=== PATIENT | female | born 1950 | race Caucasian/White ===

== ENCOUNTER 2025-06-20 15:51 | Outpatient (AMB) | payer MEDICARE, MEDICAID, SELFPAY ==
--- NOTE | 2025-06-20 15:35 | A.OFFVIS_ITS ---
Intake Visit Reasons: 6m MCI Medication List - Last Reconciled 06/20/25 by Tejas Cid MD donepezil 10 mg PO DAILY 90 days HPI Comments Details: Doing well? with stable memory. Daughter helps with ADL. No change in her memory. Her son says that she has been stable. His sister first noted that she has some short-term memory problems for the last 1-1/2 years and will sometimes make up stories about events that are happening. There've been some subtle personality changes. She has not been cooking for about 7 years and did not feel safe with her using the stove. She has some urinary control issues and gets around with a cane. No falls. She is being treated for bronchial asthma insomnia depression and anxiety. No history of head trauma or stroke or family history of dementia. Review of Systems Const Details: ?Sleep:? Difficulty getting to sleepadmits.? Difficulty maintaining sleepadmits.? Urge to move legsdenies.? Teeth grindingdenies.? Shouting or Kicking during sleep denies.? Abnormal behavior during sleepdenies.? Excessive sleepdenies.? Snoring admits.? Daytime sleepinessdenies. ???General/Constitutional:? Change in appetitedenies.? Chillsdenies.? Fatiguedenies.? Feverdenies.? Weight gaindenies.? Weight lossdenies. ???Ophthalmologic:? Blurred visiondenies.? Diminished visual acuitydenies. ???ENT:? Stuffinessdenies.? Decreased hearingdenies.? Dry mouthdenies.? Ear paindenies.? Nosebleeddenies.? Ringing in the earsdenies.? Sinus paindenies.? Sore throat denies.? Swollen glandsdenies. ???Endocrine:? Cold intolerancedenies.? Excessive thirstdenies.? Frequent urinationdenies.? Heat intolerancedenies. ???Respiratory:? Shortness of breathadmits.? Chest paindenies.? Coughdenies. ???Breast:? Breast lumpdenies.? Nipple dischargedenies. ???Cardiovascular:? Chest pain at restdenies.? Chest pain with exertiondenies.? Claudicationdenies .? Dizzinessdenies.? Fluid accumulation in the legsdenies.? Irregular heartbeat denies.? Palpitationsdenies. ???Gastrointestinal:? Abdominal paindenies.? Constipationdenies.? Diarrheadenies.? Difficulty swallowingdenies.? Heartburnadmits.? Nauseadenies.? Rectal bleedingdenies. ???Hematology:? Easy bruisingdenies.? Prolonged bleedingdenies. ???Genitourinary:? Frequent urinationdenies.? Urgencydenies.? Incontinencedenies.? Erectile Dysfunctiondenies. ???Musculoskeletal:? Neck paindenies.? Back paindenies.? Muscle achesadmits.? Painful jointsadmits.? Sciaticadenies.? Weaknessdenies. ???Podiatric:? Difficulty walkingdenies.? Foot numbnessdenies. ???Neurologic:? Difficulty swallowingdenies.? Balance difficultydenies.? Coordinationnormal.? Difficulty speakingdenies.? Dizzinessdenies.? Faintingdenies.? Gait abnormality denies.? Headachedenies.? Loss of strengthdenies.? Loss of use of extremity denies.? Low back paindenies.? Memory lossadmits.? Seizuresdenies.? Ticsdenies.? Tingling/Numbnessdenies.? Transient loss of visiondenies.? Tremordenies. ???Psychiatric:? Anxietyadmits.? Auditory/visual hallucinationsPersonality change.? Delusions admits.? Depressed moodadmits.? Stressorsadmits.? Substance abusedenies.? Suicidal thoughtsdenies. Physical Exam Neuro Other: Neurological: Abnormal neurological findings:??none.?Mental Status:??alert and oriented X 3,?Normal attention, orientation, memory and affect.?Cranial Nerves:??Pupils are equal, round and reactive to light. Fundoscopy shows normal disc bilaterally. External occular muscles are intact. Visual gomez are full, no ptosis. Face is symmetrical, no facial weakness or droop. Facial sensations are normal. Tongue protrudes in midline. Palate elevates symmetrically. Shoulder shrugging is normal..?Motor Examination:??Normal muscle tone, bulk and strength,?No atrophy or fasciculations,?No drift of the extended upper extremities,?Deep tendon reflexes are 2+?,?Plantars are flexor?.?Straight Leg Raising:??90 degrees.?Sensory Exam:??Normal light touch, temperature, pinprick, vibration and joint-position sensations?,?Rhomberg sign is absent.?Coordination:??no ataxia,?no titubation,?fwrmci-pr-mulz, zdmk-udyu-lyum test and rapid alternating movements were normal.?Gait Exam:??Within normal limits.?Cerebellar Signs:??Wxoruv-up-egad and uqpt-ya-bfmu is normal,?no dysdiadochokinesia?.?Extrapyramidal System:??No tremor, rigidity with normal facial expressions,?No bradykinesia, no bradyphrenia. Normal arm swing and posture. No propulsion or retropulsion.?Speech:??Normal,?no dysphasia or dysarthria..? Mini Mental Status Exam: Level of Consciousness:??Alert.?Orientation:??Knows correct year, month, date, day and season,?Knows correct city, county and state. Knows correct location and floor.?Registration:??Able to register 3 objects.?Attention:??Serial 7's performed accurately.?Recall:??Able to recall 2 out of 3 objects.?Language:??Normal spontaneous speech, fluency, repetition,naming, comprehension, reading and writing.?Total Score:??29/30.? General Examination: GENERAL APPEARANCE:??normal,?in no acute distress.?HEAD:??normocephalic,?atraumatic.?EYES:??sclera non- icteric,?conjunctiva clear.?EARS:??auditory canal clear,?tympanic membrane intact, clear.?NOSE:??no lesions.?ORAL CAVITY:??gums normal,?mucosa moist,?no lesions.?THROAT:??clear.?NECK/THYROID:??no cervical lymphadenopathy,?thyroid normal,?neck supple, full range of motion,?no carotid bruit.?SKIN:??no rashes,?no significant birthmarks.?HEART:??S1, S2 normal,?no murmurs.?LUNGS:??clear anteriorly and posteriorly.?CHEST:??no gross rib deformity,?clear to auscultation.?BACK:??normal exam of spine.?EXTREMITIES:??no edema.?PERIPHERAL PULSES:??normal.?PSYCH:??alert, oriented,?cognitive function intact,?cooperative with exam.? Assessment & Plan Assessment & Plan (1) MCI (mild cognitive impairment): Comment: 04/16/22 EEG- WNL CT brain normal. Labs normal. Code(s): G31.84 - Mild cognitive impairment of uncertain or unknown etiology Category: Medical (2) Insomnia: Code(s): G47.00 - Insomnia, unspecified Category: Medical (3) YORDY (obstructive sleep apnea): Code(s): G47.33 - Obstructive sleep apnea (adult) (pediatric) Category: Medical Plan continue current meds Medications: New donepezil 10 mg PO DAILY 90 tabs 3RF 90 days Coding Level of Care Code Est Pt Level 4 (22070) Diagnoses MCI (mild cognitive impairment) G31.84 Insomnia G47.00 YORDY (obstructive sleep apnea) G47.33
--- OUTSIDE RECORDS SUMMARY | 2025-06-20 19:08 | XMS_ITS | Patient Health Record ---
Author Organization [facility] Address [address] [place] [address] Care Team Providers Care Ship Pilot Name Role Phone TORIBIO VARELA Primary Care Provider Orlin Barnes Unavailable [phone] JuanashleyKhanh fish Unavailable [phone] Allergies Allergen (clinical drug ingredient) Drug/Non Drug Allergy documented on EMR Reaction Allergy Type Onset Date Status eggs (uncoded) Unknown Allergy Activ e ibuprofen Ibuprofen Unknown Drug Allergy Active Influenza Vac Split Quad Unknown Drug Allergy Active Results Component Value Reference Range Notes TSH+Free [id number] Reviewed date:04/24/2025 02:37:10 PM Interpretation: Performing Lab:[facility], [address] [facility], Phone - [phone], Director - Charles Notes/Report: TSH 16.300 0.450-4.500 uIU/mL T4,Free(Direct) 1.10 0.82-1.77 ng/dL TSH+Free [id number] Reviewed date:06/04/2025 12:20:59 PM Interpretation: Performing Lab:[facility], [employer] [facility], Phone - [phone], Director - Mayay Notes/Report: TSH 12.700 0.450-4.500 uIU/mL T4,Free(Direct) 1.55 0.82-1.77 ng/dL 25-Hydroxyvitamin D LCMS D2+ [id number] Reviewed date:11/15/2024 04:16:30 PM Interpretation: Performing Lab:[facility], [address] [facility], Phone - [phone], Director - [facility] Notes/Report: 25-Hydroxy, Vitamin D 51 Reference Range: All Ages: Target levels 30 - 100 25-Hydroxy, Vitamin D-2 3.8 This test was developed and its performance characteristics determined by [facility]. It has not been cleared or approved by the Food and Drug Administration. 25-Hydroxy, Vitamin D-3 47 This test was developed and its performance characteristics determined by [facility]. It has not been cleared or approved by the Food and Drug Administration. Lipid Panel-[id number] Reviewed date:11/15/2024 04:16:32 PM Interpretation: Performing Lab:[facility] [place], [address] [facility], [place], Phone - [phone], Director - [facility] Notes/Report: Cholesterol, Total 174 100-199 mg/dL Triglycerides 110 0-149 mg/dL HDL Cholesterol 61 >39 mg/dL VLDL Cholesterol Norberto 20 5-40 mg/dL LDL Chol Calc ([facility]) 93 0-99 mg/dL Comp. Metabolic Panel (14)-3 Reviewed date:11/15/2024 04:17:04 PM Interpretation: Performing Lab:[facility], [address] [facility], [place], Phone - [phone], [facility]Report: Glucose 78 70-99 mg/dL BUN 12 8-27 mg/dL Creatinine 0.62 0.57-1.00 mg/dL eGFR 94 >59 mL/min/1.73 BUN/Creatinine Ratio 19 12-28 Sodium 144 134-144 mmol/L Potassium 4.7 3.5-5.2 mmol/L Chloride 106 96-106 mmol/L Carbon Dioxide, Total 25 20-29 mmol/L Calcium 9.0 8.7-10.3 mg/dL Protein, Total 6.0 6.0-8.5 g/dL Albumin 4.1 3.8-4.8 g/dL Globulin, Total 1.9 1.5-4.5 g/dL Bilirubin, Total 0.2 0.0-1.2 mg/dL Alkaline Phosphatase 62 44-121 IU/L AST (SGOT) 13 0-40 IU/L ALT (SGPT) 10 0-32 IU/L TSH+Free [id number] Reviewed date:11/15/2024 04:46:46 PM Interpretation: Performing Lab:[facility], [address], [place], Phone - [phone], Director - Charles Notes/Report: TSH 0.179 0.450-4.500 uIU/mL T4,Free(Direct) 1.52 0.82-1.77 ng/dL Reason For Referral Reason blurry vision Plea se evaluate and treat Diagnosis 1 Unspecified visual d isturbance (H53.9) Referral Organization [facility] Referring Provider First Name ROONEY Referring Provider Last Name NICHOLE Referring Provider Speciality Internal M edicine Referred Provider Specialty Ophthalmolog y General Notes Please call the julianne ent to schedule the appointment, Encounter created and SMS sent to the pt.Eran Charmain 04/11/2025 04:44:04 PM > Referral Priority Routine Medications Medication SIG (Take, Route, Frequency, Duration) Notes Start Date End Date Status Levothyroxine Sodium 100 MCG TAKE 1 TABLET IN THE MORNING ON AN EMPTY STOMACH ONCE A DAY Orally Once a day; Duration: 30 days Not-Taking Cetirizine HCl 10 MG 1 tablet Orally Onc e a day; Duration: 90 days Active Advair HFA 230-21 MCG/ACT 2 puffs Inhala tion Twice a day; Duration: 90 days Active Ketotifen Fumarate 0.035 % 1 drop into affected eye Ophthalmic Twice a day Not-Taking Omeprazole 20 MG 1 capsule Orally twi ce a day; Duration: 30 days 11/28/2024 Active Ammonium Lactate 12 % 1 application Externally Twice a day Active Ondansetron HCl 4 MG 1 tablet Orally twi ce a day; Duration: 5 days 11/28/2024 Not-Taking Vitamin D3 1.25 MG (33365 UT) 1 capsule Orally Active Airsupra 90-80 MCG/ACT 2 puffs as needed Inhalation Six times a day Active Misc. Devices - Walker as directed; DX: R26.89; Duration: 30 days 10/30/2024 Not-Taking Spiriva Respimat 1.25 MCG/ACT 2 puffs Inhalation Once a day Active Omeprazole 20 MG TAKE 1 CAPSULE BY MO [facility] EVERY DAY FOR 90 DAYS; Duration: 90 Not-Taking buPROPion HCl ER (XL) 300 MG 1 tablet in the morning Orally Once a day Active Alendronate Sodium 70 MG TAKE 1 TABLET B Y MOUTH ONE TIME PER WEEK; Duration: 84 Not-Taking Diclofenac Sodium 3 % 1 application Externally Twice a day; Duration: 30 days 10/10/2024 Not-Taking Clotrimazole 1 % 1 APPLICATION EXTERNALLY TWICE A DAY 30 DAYS; Duration: 7 Active Levothyroxine Sodium 125 MCG 1 tablet in the morning on an empty stomach Orally Once a day; Duration: 90 days 11/15/2024 Active Meclizine HCl 25 MG 1 tablet as needed Orally Once a day; Duration: 30 day(s) 04/28/2021 Active buPROPion HCl 100 MG 3 tablets Orally on ce a day; Duration: 90 days Not-Takin g Pregabalin 75 MG 1 capsule Orally Twi ce a day; Duration: 28 days 05/21/2025 Active Zolpidem Tartrate 10 MG 1 tablet at bedt ken as needed Orally Once a day; Duration: 30 days Active Donepezil HCl 10 MG 1 tablet at bedtime Orally Once a day Active Sertraline HCl 25 MG TAKE 1 TABLET BY [facility] EVERY DAY FOR 30 DAYS; Duration: 90 Not-Taking Albuterol Sulfate (2.5 MG/3ML) 0.083% 3 mL as needed Inhalation every 6 hrs; DX: J45.30; Duration: 30 days Active Ketoconazole 2 % APPLY EXTERNALLY TWI CE A WEEK FOR 28 DAY(S) 30; Duration: 30 Active Montelukast Sodium 10 MG TAKE 1 TABLET B Y MOUTH EVERY DAY; Duration: 90 Active Fluticasone Propionate 50 MCG/ACT SPRAY 1 PUFF INTO EACH NOSTRIL EVERY DAY Nasally Twice a day; Duration: 30 days Not-Taking traZODone HCl 50 MG TAKE 1 TABLET BY [facility] EVERY DAY AT BEDTIME NEEDED FOR 30 DAYS; Duration: 90 Active Ventolin HFA 108 (90 Base) MCG/ACT 1 puff as needed Inhalation every 4 hrs; Duration: 30 days Not-Taking Lidocaine 5 % APPLY 1 PATCH DAILY (12 HOURS ON, 12 HOURS OFF); Duration: 60 Not-Taking Acetaminophen ER 650 MG TAKE 2 TABLETS B Y MOUTH EVERY 8 HOURS NEEDED; Duration: 30 Not-Taking Ketoconazole 2 % 1 application Externally Once a day; Duration: 14 day(s) 11/24/2022 Not-Taking Zaditor 0.025 % 1 drop into affected eye Ophthalmic Twice a day Not-Taking Senna-Time 8.6 MG TAKE 2 TABLETS AT BEDTIME NEEDED ORALLY ONCE A DAY; Duration: 90 Active Immunizations Vaccine Route Administration Date Status Comme nts COVID 19 Pfizer Unknown 11/21/2020 Administered COVID 19 Pfizer Unknown 12/12/2020 Administered COVID 19 Pfizer Unknown 06/10/2021 Administered COVID-19 Pfizer Unknown 08/20/2022 Administered Social History Tobacco Use: Social History Observation Description Date Details (start date - stop date) Never Smoker NA - NA Tobacco Use/Smoking Question Answer Notes Are you a nonsmoker Alcohol Screen (Audit-C) Question Answer Notes Did you have a drink containing alcohol in the p ast year? No Points 0 Interpretation Negative Problems Problem Type SNOMED Code ICD Code Onset Dates Problem Status W/U Status Risk Notes Problem Hypothyroidism (12676467) Hypothyroidism, unspecified (E03.9) Active confirmed Problem Vitamin D deficiency (38606838) Vitamin D deficiency, unspecified (E55.9) Active confirmed Problem Lipomatosis (407720987) Lipomatosis, not elsewhere classified (E88.2) Active confirmed Problem Generalized anxiety disorder (85682012) Generalized anxiety disorder (F41.1) Active confirmed Problem Insomnia (340252961) Insomnia, unspecified (G47.00) Active confirmed Problem Chronic pain syndrome (732576045) Chronic pain syndrome (G89.4) Active confirmed Problem Hearing loss (55591160) Unspecified hearing loss, unspecified ear (H91.90) Active confirmed Problem Uncomplicated mild persistent asthma (302970977) Mild persistent asthma, uncomplicated (J45.30) Active confirmed Problem Constipation (96009810) Constipation, unspecified (K59.00) Active confirmed Problem Osteoarthritis of knee (170342270) Osteoarthritis of knee, unspecified (M17.9) Active confirmed Problem Age-related osteoporosis (379700559) Age-related osteoporosis without current pathological fracture (M81.0) Active confirmed Problem Abnormal gait (82361752) Other abnormalities of gait and mobility (R26.89) Active confirmed Problem Solitary pulmonary nodule (566508114) Solitary pulmonary nodule (R91.1) Active confirmed Problem Pre-procedure evaluation check (276286503) Encounter for other preprocedural examination (Z01.818) Active confirmed Problem Amnesia (13305708) Complaints of memory disturbance (R41.3) Active confirmed Problem Gastroesophageal reflux disease with esophagitis (disorder) (873338367) Gastro-esophageal reflux disease with esophagitis, without bleeding (K21.00) Active confirmed Problem Seasonal allergy (273105474) Seasonal allergies (J30.2) Active confirmed Vital Signs Heart Rate 91 /min 04/11/2025 Temperature 96.8 degrees Fahrenheit 04/11/2025 Blood pressure diastolic 70 mm Hg 04/11/2025 Oximetry 96 % 04/11/2025 Height 4'11'' in 04/11/2025 Blood pressure systolic 120 mm Hg 04/11/2025 Weight 160.6 lbs 04/11/2025 BMI 32.43 kg/m2 04/11/2025 Encounters Encounter Location Date Provider Diagnosis [address] [place] [address] 10/10/2024 TORIBIO VARELA Hypothyroidism, unspecified E03.9 ; Generalized anxiety disorder F41.1 ; Mild persistent asthma, uncomplicated J45.30 ; Chronic pain syndrome G89.4 ; Complaints of memory disturbance R41.3 ; Vitamin D deficiency, unspecified E55.9 and Encounter for screening for cardiovascular disorders Z13.[address] [place] [address] 11/28/2024 [place]am Gastro-esophageal reflux disease with esophagitis, without bleeding K21.00 and Nausea R11.[address] [place] [address] 04/11/2025 TORIBIO VARELA Encounter for genera l adult medical examination without abnormal findings Z00.00 ; Hypothyroidism, unspecified E03.9 ; Mild persistent asthma, uncomplicated J45.30 ; Osteoarthritis of knee, unspecified M17.9 and Gastro-esophageal reflux disease with esophagitis, without bleeding K21.[address] [place] [address] 10/27/[address] [place] [address] 10/30/[address] [place] [address] 11/02/2024 ROONEY GUL [address] [place] [address] 11/15/2024 [facility] Hyp[facility], unspecified E03.[address] [facility] [place] [address] 11/16/2024 ROONEY GUL Hypothyroidism, unspecified E03.[address] [place] [address] 12/26/2024 ROONEY GUL Gastro-esophageal reflux disease with esophagitis, without bleeding K21.[address] [place] [address] 02/19/[address] [place] [address] 02/19/[address] [place] [address] 04/11/[address] [place] [address] 04/23/2025 ROONEY GUL Hypothyroidism, unspecified E03.[address] [place] [address] 05/03/[address] [place] [address] 05/15/2025 ROONEY L [address] [place] [address] 06/04/2025 ROONEY GUL Hypothyroidism, unspecified E03.[address] [place] [address] 06/04/2025 ROONEY GUL Hypothyroidism, unspecified E03.9 Assessments Encounter Date Diagnosis (ICD Code) Assessment Notes Treatment Notes Treatment Clinical Notes Section Notes 11/28/2024 Gastro-esophageal reflux disease with esophagitis, without bleeding (ICD-10 - K21.00) patient is a 74-year-old lady with history of osteoarthritis, chronic back pain, [place] and was evaluated for abdominal pain and nausea. Status post ER visit for abdominal pain and nausea. Imaging reviewed, CT of the abdomen and lab work was unremarkable. There is no evidence of any UTI. Patient's complaints are more persistent with a viral infection possibly a stomach flu. Abdominal pain has resolved she has no constipation. Continue hydration. She also has some GERD symptoms we will give her omeprazole 20 mg twice a day for a week and then she can resume 20 mg daily as she was doing before. Sub-mandibular lymphadenopathy nontender most likely a part of the viral prodrome. Patient also had initially pharyngitis. Discussed with patient and son that we should expect this to resolve and slowly improve if no improvement we will repeat blood work and may need imaging if getting enlarged. Patient states that they are already getting smaller in size and improving. chronic medical issues are stable 10/10/2024 Hypothyroidism, unspecified (ICD-10 - E03.9) Mrs. Faith is a 74-year-old [place]ic-speaking lady with GERD, hypothyroidism, insomnia, osteoporosis, anxiety disorder, asthma and osteoarthritis of bilateral knee joints and follows up with [facility] for cortisone injections here complaining about knee pain. Plan as follows: Bilateral knee joint pain. It is progressive osteoarthritis. Increase pregabalin to 75 mg 1 tablet twice a day and she can use diclofenac gel 3% twice a day and continue with Tylenol arthritis 650 mg 2 tablets twice a day. Continued to have intra-articular injections. She is not interested in surgery and physical therapy. Hypothyroidism. TSH/T4 is within normal limits and continue current regimen. Recheck TSH T4 Mild persistent asthma/seasonal allergies. It is stable and she uses albuterol inhaler as needed. Vitamin D deficiency/osteopo rosis. Continue vitamin D supplements and recheck vitamin D3 levels. She is also on alendronate 70 mg weekly. Generalized anxiety disorder/insomnia. She is followed by psychiatry. She is on Ambien 10 mg daily along with bupropion 100 mg daily and trazodone 50 mg daily symptoms are well controlled. Acid reflux. Continue omeprazole 20 mg daily. Mild dementia. She is on denies pill 5 mg daily and she is stable at this point. Brain stimulation exercises recommended Screening blood work ordered 04/11/2025 Encounter for general adult medical examination without abnormal findings (ICD-10 - Z00.00) Mrs. Faith is a 74-year-old [place]ic-speaking lady with GERD, hypothyroidism, insomnia, osteoporosis, anxiety disorder, asthma and osteoarthritis of bilateral knee joints and follows up with [facility] for cortisone injections is here today for physical. Hypothyroidism. She is currently on levothyroxine 75 mcg and she will check TSH/T4. Acid reflux. Continue on omeprazole 20 mg daily. Generalized anxiety disorder/depressio n/insomnia. She follows up with psychiatrist and she is currently on bupropion ER 300 mg 1 tablet daily, Ambien 10 mg daily, trazodone 50 mg daily at bedtime. Mild cognitive decline. She is on Aricept 10 mg daily through psychiatrist. Multiple joint osteoarthritis. We did a detailed discussion that patient will benefit from total knee replacement. She had intra-articular injection intermittently and she is on pregabalin 75 mg and she takes Tylenol arthritis through orthopedics. Asthma. Stable on current regimen of Advair 230/21 mcg, albuterol inhaler, Spiriva 1.25 and airsupra 90/80 mcg and she follows up with pulmonary. She is up-to-date on 8 specific screening. She is full code and her daughter is her healthcare proxy. 11/15/2024 Hypothyroidism, unspecified (ICD-10 - E03.9) 11/16/2024 Hypothyroidism, unspecified (ICD-10 - E03.9) 12/26/2024 Gastro-esophageal reflux disease with esophagitis, without bleeding (ICD-10 - K21.00) 04/23/2025 Hypothyroidism, unspecified (ICD-10 - E03.9) 06/04/2025 Hypothyroidism, unspecified (ICD-10 - E03.9) 06/04/2025 Hypothyroidism, unspecified (ICD-10 - E03.9) 11/28/2024 Nausea (ICD-10 - R11.0) patient is a 74-year-old lady with history of osteoarthritis, chronic back pain, [place] and was evaluated for abdominal pain and nausea. Status post ER visit for abdominal pain and nausea. Imaging reviewed, CT of the abdomen and lab work was unremarkable. There is no evidence of any UTI. Patient's complaints are more persistent with a viral infection possibly a stomach flu. Abdominal pain has resolved she has no constipation. Continue hydration. She also has some GERD symptoms we will give her omeprazole 20 mg twice a day for a week and then she can resume 20 mg daily as she was doing before. Sub-mandibular lymphadenopathy nontender most likely a part of the viral prodrome. Patient also had initially pharyngitis. Discussed with patient and son that we should expect this to resolve and slowly improve if no improvement we will repeat blood work and may need imaging if getting enlarged. Patient states that they are already getting smaller in size and improving. chronic medical issues are stable 04/11/2025 Hypothyroidism, unspecified (ICD-10 - E03.9) Mrs. Faith is a 74-year-old [place]ic-speaking lady with GERD, hypothyroidism, insomnia, osteoporosis, anxiety disorder, asthma and osteoarthritis of bilateral knee joints and follows up with [facility] for cortisone injections is here today for physical. Hypothyroidism. She is currently on levothyroxine 75 mcg and she will check TSH/T4. Acid reflux. Continue on omeprazole 20 mg daily. Generalized anxiety disorder/depressio n/insomnia. She follows up with psychiatrist and she is currently on bupropion ER 300 mg 1 tablet daily, Ambien 10 mg daily, trazodone 50 mg daily at bedtime. Mild cognitive decline. She is on Aricept 10 mg daily through psychiatrist. Multiple joint osteoarthritis. We did a detailed discussion that patient will benefit from total knee replacement. She had intra-articular injection intermittently and she is on pregabalin 75 mg and she takes Tylenol arthritis through orthopedics. Asthma. Stable on current regimen of Advair 230/21 mcg, albuterol inhaler, Spiriva 1.25 and airsupra 90/80 mcg and she follows up with pulmonary. She is up-to-date on 8 specific screening. She is full code and her daughter is her healthcare proxy. 10/10/2024 Generalized anxiety disorder (ICD-10 - F41.1) Mrs. Faith is a 74-year-old [place]-speaking lady with GERD, hypothyroidism, insomnia, osteoporosis, anxiety disorder, asthma and osteoarthritis of bilateral knee joints and follows up with [facility] for cortisone injections here complaining about knee pain. Plan as follows: Bilateral knee joint pain. It is progressive osteoarthritis. Increase pregabalin to 75 mg 1 tablet twice a day and she can use diclofenac gel 3% twice a day and continue with Tylenol arthritis 650 mg 2 tablets twice a day. Continued to have intra-articular injections. She is not interested in surgery and physical therapy. Hypothyroidism. TSH/T4 is within normal limits and continue current regimen. Recheck TSH T4 Mild persistent asthma/seasonal allergies. It is stable and she uses albuterol inhaler as needed. Vitamin D deficiency/osteopo rosis. Continue vitamin D supplements and recheck vitamin D3 levels. She is also on alendronate 70 mg weekly. Generalized anxiety disorder/insomnia. She is followed by psychiatry. She is on Ambien 10 mg daily along with bupropion 100 mg daily and trazodone 50 mg daily symptoms are well controlled. Acid reflux. Continue omeprazole 20 mg daily. Mild dementia. She is on denies pill 5 mg daily and she is stable at this point. Brain stimulation exercises recommended Screening blood work ordered 04/11/2025 Mild persistent asthma, uncomplicated (ICD-10 - J45.30) Mrs. Faith is a 74-year-old [place]ic-speaking lady with GERD, hypothyroidism, insomnia, osteoporosis, anxiety disorder, asthma and osteoarthritis of bilateral knee joints and follows up with [facility] for cortisone injections is here today for physical. Hypothyroidism. She is currently on levothyroxine 75 mcg and she will check TSH/T4. Acid reflux. Continue on omeprazole 20 mg daily. Generalized anxiety disorder/depressio n/insomnia. She follows up with psychiatrist and she is currently on bupropion ER 300 mg 1 tablet daily, Ambien 10 mg daily, trazodone 50 mg daily at bedtime. Mild cognitive decline. She is on Aricept 10 mg daily through psychiatrist. Multiple joint osteoarthritis. We did a detailed discussion that patient will benefit from total knee replacement. She had intra-articular injection intermittently and she is on pregabalin 75 mg and she takes Tylenol arthritis through orthopedics. Asthma. Stable on current regimen of Advair 230/21 mcg, albuterol inhaler, Spiriva 1.25 and airsupra 90/80 mcg and she follows up with pulmonary. She is up-to-date on 8 specific screening. She is full code and her daughter is her healthcare proxy. 10/10/2024 Mild persistent asthma, uncomplicated (ICD-10 - J45.30) Mrs. Faith is a 74-year-old [place]-speaking lady with GERD, hypothyroidism, insomnia, osteoporosis, anxiety disorder, asthma and osteoarthritis of bilateral knee joints and follows up with [facility] for cortisone injections here complaining about knee pain. Plan as follows: Bilateral knee joint pain. It is progressive osteoarthritis. Increase pregabalin to 75 mg 1 tablet twice a day and she can use diclofenac gel 3% twice a day and continue with Tylenol arthritis 650 mg 2 tablets twice a day. Continued to have intra-articular injections. She is not interested in surgery and physical therapy. Hypothyroidism. TSH/T4 is within normal limits and continue current regimen. Recheck TSH T4 Mild persistent asthma/seasonal allergies. It is stable and she uses albuterol inhaler as needed. Vitamin D deficiency/osteopo rosis. Continue vitamin D supplements and recheck vitamin D3 levels. She is also on alendronate 70 mg weekly. Generalized anxiety disorder/insomnia. She is followed by psychiatry. She is on Ambien 10 mg daily along with bupropion 100 mg daily and trazodone 50 mg daily symptoms are well controlled. Acid reflux. Continue omeprazole 20 mg daily. Mild dementia. She is on denies pill 5 mg daily and she is stable at this point. Brain stimulation exercises recommended Screening blood work ordered 04/11/2025 Osteoarthritis of knee, unspecified (ICD-10 - M17.9) Mrs. Faith is a 74-year-old [place]-speaking lady with GERD, hypothyroidism, insomnia, osteoporosis, anxiety disorder, asthma and osteoarthritis of bilateral knee joints and follows up with [facility] for cortisone injections is here today for physical. Hypothyroidism. She is currently on levothyroxine 75 mcg and she will check TSH/T4. Acid reflux. Continue on omeprazole 20 mg daily. Generalized anxiety disorder/depressio n/insomnia. She follows up with psychiatrist and she is currently on bupropion ER 300 mg 1 tablet daily, Ambien 10 mg daily, trazodone 50 mg daily at bedtime. Mild cognitive decline. She is on Aricept 10 mg daily through psychiatrist. Multiple joint osteoarthritis. We did a detailed discussion that patient will benefit from total knee replacement. She had intra-articular injection intermittently and she is on pregabalin 75 mg and she takes Tylenol arthritis through orthopedics. Asthma. Stable on current regimen of Advair 230/21 mcg, albuterol inhaler, Spiriva 1.25 and airsupra 90/80 mcg and she follows up with pulmonary. She is up-to-date on 8 specific screening. She is full code and her daughter is her healthcare proxy. 10/10/2024 Chronic pain syndrome (ICD-10 - G89.4) Mrs. Faith is a 74-year-old [place]ic-speaking lady with GERD, hypothyroidism, insomnia, osteoporosis, anxiety disorder, asthma and osteoarthritis of bilateral knee joints and follows up with [facility] for cortisone injections here complaining about knee pain. Plan as follows: Bilateral knee joint pain. It is progressive osteoarthritis. Increase pregabalin to 75 mg 1 tablet twice a day and she can use diclofenac gel 3% twice a day and continue with Tylenol arthritis 650 mg 2 tablets twice a day. Continued to have intra-articular injections. She is not interested in surgery and physical therapy. Hypothyroidism. TSH/T4 is within normal limits and continue current regimen. Recheck TSH T4 Mild persistent asthma/seasonal allergies. It is stable and she uses albuterol inhaler as needed. Vitamin D deficiency/osteopo rosis. Continue vitamin D supplements and recheck vitamin D3 levels. She is also on alendronate 70 mg weekly. Generalized anxiety disorder/insomnia. She is followed by psychiatry. She is on Ambien 10 mg daily along with bupropion 100 mg daily and trazodone 50 mg daily symptoms are well controlled. Acid reflux. Continue omeprazole 20 mg daily. Mild dementia. She is on denies pill 5 mg daily and she is stable at this point. Brain stimulation exercises recommended Screening blood work ordered 04/11/2025 Gastro-esophageal reflux disease with esophagitis, without bleeding (ICD-10 - K21.00) Mrs. Faith is a 74-year-old [place]ic-speaking lady with GERD, hypothyroidism, insomnia, osteoporosis, anxiety disorder, asthma and osteoarthritis of bilateral knee joints and follows up with [facility] for cortisone injections is here today for physical. Hypothyroidism. She is currently on levothyroxine 75 mcg and she will check TSH/T4. Acid reflux. Continue on omeprazole 20 mg daily. Generalized anxiety disorder/depressio n/insomnia. She follows up with psychiatrist and she is currently on bupropion ER 300 mg 1 tablet daily, Ambien 10 mg daily, trazodone 50 mg daily at bedtime. Mild cognitive decline. She is on Aricept 10 mg daily through psychiatrist. Multiple joint osteoarthritis. We did a detailed discussion that patient will benefit from total knee replacement. She had intra-articular injection intermittently and she is on pregabalin 75 mg and she takes Tylenol arthritis through orthopedics. Asthma. Stable on current regimen of Advair 230/21 mcg, albuterol inhaler, Spiriva 1.25 and airsupra 90/80 mcg and she follows up with pulmonary. She is up-to-date on 8 specific screening. She is full code and her daughter is her healthcare proxy. 10/10/2024 Complaints of memory disturbance (ICD-10 - R41.3) Mrs. Faith is a 74-year-old [place]ic-speaking lady with GERD, hypothyroidism, insomnia, osteoporosis, anxiety disorder, asthma and osteoarthritis of bilateral knee joints and follows up with [facility] for cortisone injections here complaining about knee pain. Plan as follows: Bilateral knee joint pain. It is progressive osteoarthritis. Increase pregabalin to 75 mg 1 tablet twice a day and she can use diclofenac gel 3% twice a day and continue with Tylenol arthritis 650 mg 2 tablets twice a day. Continued to have intra-articular injections. She is not interested in surgery and physical therapy. Hypothyroidism. TSH/T4 is within normal limits and continue current regimen. Recheck TSH T4 Mild persistent asthma/seasonal allergies. It is stable and she uses albuterol inhaler as needed. Vitamin D deficiency/osteopo rosis. Continue vitamin D supplements and recheck vitamin D3 levels. She is also on alendronate 70 mg weekly. Generalized anxiety disorder/insomnia. She is followed by psychiatry. She is on Ambien 10 mg daily along with bupropion 100 mg daily and trazodone 50 mg daily symptoms are well controlled. Acid reflux. Continue omeprazole 20 mg daily. Mild dementia. She is on denies pill 5 mg daily and she is stable at this point. Brain stimulation exercises recommended Screening blood work ordered 10/10/2024 Vitamin D deficiency, unspecified (ICD-10 - E55.9) Mrs. Faith is a 74-year-old [place]-speaking lady with GERD, hypothyroidism, insomnia, osteoporosis, anxiety disorder, asthma and osteoarthritis of bilateral knee joints and follows up with [facility] for cortisone injections here complaining about knee pain. Plan as follows: Bilateral knee joint pain. It is progressive osteoarthritis. Increase pregabalin to 75 mg 1 tablet twice a day and she can use diclofenac gel 3% twice a day and continue with Tylenol arthritis 650 mg 2 tablets twice a day. Continued to have intra-articular injections. She is not interested in surgery and physical therapy. Hypothyroidism. TSH/T4 is within normal limits and continue current regimen. Recheck TSH T4 Mild persistent asthma/seasonal allergies. It is stable and she uses albuterol inhaler as needed. Vitamin D deficiency/osteopo rosis. Continue vitamin D supplements and recheck vitamin D3 levels. She is also on alendronate 70 mg weekly. Generalized anxiety disorder/insomnia. She is followed by psychiatry. She is on Ambien 10 mg daily along with bupropion 100 mg daily and trazodone 50 mg daily symptoms are well controlled. Acid reflux. Continue omeprazole 20 mg daily. Mild dementia. She is on denies pill 5 mg daily and she is stable at this point. Brain stimulation exercises recommended Screening blood work ordered 10/10/2024 Encounter for screening for cardiovascular disorders (ICD-10 - Z13.6) Mrs. Faith is a 74-year-old [place]ic-speaking lady with GERD, hypothyroidism, insomnia, osteoporosis, anxiety disorder, asthma and osteoarthritis of bilateral knee joints and follows up with [facility] for cortisone injections here complaining about knee pain. Plan as follows: Bilateral knee joint pain. It is progressive osteoarthritis. Increase pregabalin to 75 mg 1 tablet twice a day and she can use diclofenac gel 3% twice a day and continue with Tylenol arthritis 650 mg 2 tablets twice a day. Continued to have intra-articular injections. She is not interested in surgery and physical therapy. Hypothyroidism. TSH/T4 is within normal limits and continue current regimen. Recheck TSH T4 Mild persistent asthma/seasonal allergies. It is stable and she uses albuterol inhaler as needed. Vitamin D deficiency/osteopo rosis. Continue vitamin D supplements and recheck vitamin D3 levels. She is also on alendronate 70 mg weekly. Generalized anxiety disorder/insomnia. She is followed by psychiatry. She is on Ambien 10 mg daily along with bupropion 100 mg daily and trazodone 50 mg daily symptoms are well controlled. Acid reflux. Continue omeprazole 20 mg daily. Mild dementia. She is on denies pill 5 mg daily and she is stable at this point. Brain stimulation exercises recommended Screening blood work ordered Plan Of Treatment Pending Test Test Name Order Date X ray : Foot, left 09/12/2019 25OH VITAMIN D 10/23/2021 TSH WITH REFLEX TO FT4 10/23/2021 TSH+Free [id number] 11/15/2024 TSH+Free [id number] 06/04/2025 Next Appt Details Provider Name:TORIBIO VARELA , 10/10/2025 03:45:00 PM, [address] [place] [address], [id number], Insurance Providers Payer Name Payer Address Payer Phone Subscriber Number Group Number Insured Name Patient Relationship to Insured Coverage Start Date Coverage End Date Medicare [address] [place] WOODYJEFFRY [id number] Stu Faith Self - patient is the insured 7 [employer] of [place] ts [address] [place] [phone] [id number] Stu Faith Self - patient is the insured Medical (General) History Medical History History ICD Code Hypothyroidism insomnia osteoporosis Anxiety disorder see Jessica Goodson asthma - moderate persistent see Dr Solorio er at [facility] osteoarthritis b/l knee joint and see [facility] Surgical History Surgery Date(Month/Year) thyroidectomy DR Sánchez at [facility] 2015 cataract removal left eye Hospitalization History Reason Date(Month/Year) dizzy 10/23/18
--- OUTSIDE RECORDS SUMMARY | 2025-06-20 19:08 | XMS_ITS | Encounter Summary ---
Author Organization [facility] Address [address] [place] [id number] Care Team Providers Care Spinner Iron Name Role Phone Johanna Crain PA-C Primary Care Provider [phone] Encounter Details Date Type Department Care Team (Late st Contact Info) Description 08/08/2015 Interim Notes [facility] [address] [place] [id number] Kelsey Hdez PA [address] [place] [phone] Social History Tobacco Use Types Packs/Day Years Used Date Smoking Tobacco: Never Alcohol Use Standard Drinks/Week Comments No 0 (1 standard drink = 0.6 oz pur e alcohol) Comments No Sex and Gender Information Value Date Recorded Sex Assigned at Female 02/10/2017 7:16 AM PDT Legal Sex Female 11:36 AM PDT Gender Identity Female 02/10/2017 7:16 AM PDT Sexual Orientation Straight 02/10/2017 7: 16 AM PDT documented as of this encounter Plan of Treatment Not on file documented as of this encounter Visit Diagnoses Not on filedocumented in this encounter Care Teams Spinner Iron Relationship Specialty Start Date End Date Johanna Crain PA-C [address] [place] [id number] PCP - General 11/01/18 documented as of this encounter
--- OUTSIDE RECORDS SUMMARY | 2025-06-20 19:08 | XMS_ITS | Clinical Summary ---
Author Organization [facility] [address] [place] [address] [place] [phone] Phone Care Team Providers Care Electronics Technician Name Role Phone Melinda Gayla Virk MD Primary Care Provider [phone] Allergies Active Allergy Reactions Criticality Noted Date Comments Egg 05/08/2021 Ibuprofen 05/08/2021 Influenza Virus Vaccines 05/08/2021 Influenza Vac Split Quad Medications bisacodyL (DULCOLAX) 5 mg EC tablet Take 4 tablets by mouth right before your first dose of liquid prep. 1 Active polyethylene glycol (GoLYTELY) 236-22.74-6.74 -5.86 gram solution Take 240 mL by mouth once for 1 dose. May substitue for any PEG. Follow instructions given by office. 1 Active alendronate (FOSAMAX) 70 mg tablet Take 1 tablet (70 mg total) by mouth every 7 (seven) days. Active pregabalin (LYRICA) 75 mg capsule Take 1 capsule (75 mg total) by mouth 2 (two) times a day. Active fluticasone propion-salmete roL (ADVAIR HFA) 230-21 mcg/actuation inhaler Inhale 2 puffs by mouth 2 (two) times a day. Active ketotifen fumarate (ZADITOR) 0.035 % ophthalmic solution 1 Drop 2 times daily. Active fluticasone propionate (FLONASE) 50 mcg/actuation nasal spray 2 Sprays by Each Nare route daily. Active cholecalciferol (VITAMIN D-3) 50 mcg (2,000 unit) capsule Take 1 capsule (2,000 Units total) by mouth 1 (one) time each day. Active buPROPion (WELLBUTRIN) 100 mg tablet Take 1 tablet (100 mg total) by mouth 1 (one) time each day. Active fluticasone HFA (FLOVENT HFA) 110 mcg/actuation inhaler Inhale 1 puff by mouth 2 (two) times a day. Active levothyroxine (SYNTHROID, LEVOTHROID) 88 mcg tablet Take 1 tablet (88 mcg total) by mouth 1 (one) time each day. Active meclizine (ANTIVERT) 25 mg tablet Take by mouth. Activ e traZODone (DESYREL) 50 mg tablet Take 10 tablets (500 mg total) by mouth at bedtime. Active zolpidem (AMBIEN) 10 mg tablet Take by mouth at bedtime as needed. Active hydrOXYzine HCL (ATARAX) 25 mg tablet Take 25 mg by mouth 3 times daily as needed. Active acetaminophen (TYLENOL 8 HOUR) 650 mg 8 hr tablet Take 650 mg by mouth every 8 hours as needed. Active carboxymethylce llulose (REFRESH PLUS) 0.5 % ophthalmic solution 1 Drop 3 times daily as needed. Active lidocaine (LIDODERM) 5 % patch Place 1 Patch onto the skin every 24 hours. Apply for no more than 12 hours in any 24 hour period. Active albuterol 2.5 mg /3 mL (0.083 %) nebulizer solution Take 1 Vial by nebulization every 4 hours as needed. Active amoxicillin-cla vulanate (AUGMENTIN) 875-125 mg per tablet Take 1 tablet by mouth 2 (two) times a day. Active omeprazole (PRILOSEC) 20 mg tablet,delayed release (DR/EC) Take by mouth. Active diclofenac (VOLTAREN) 1 % topical gel Apply topically. A ctive docusate sodium (COLACE) 100 mg capsule Take 1 capsule (100 mg total) by mouth 2 (two) times a day. Active gabapentin (NEURONTIN) 300 mg capsule Take 1 capsule (300 mg total) by mouth 2 (two) times a day. Active montelukast (SINGULAIR) 10 mg tablet Take 1 tablet (10 mg total) by mouth at bedtime. Active sennosides 8.6 mg capsule Take by mouth. Acti ve cetirizine (ZyrTEC) 10 mg tablet Take 1 tablet (10 mg total) by mouth 1 (one) time each day. Active Social History Tobacco Use Types Packs/Day Years Used Date Smoking Tobacco: Never Smokeless Tobacco: Never Alcohol Use Standard Drinks/Week Comments Never 0 (1 standard drink = 0.6 oz pur e alcohol) Comments No Sex and Gender Information Value Date Recorded Sex Assigned at Not on file Legal Sex Female 9:43 AM EST Gender Identity Not on file Sexual Orientation Not on file Obstetrics History Para Term AB IAB SAB Ectopic Multiple Livin g Live Births 5 Last Filed Vital Signs Vital Sign Reading Time Taken Comments Blood Pressure 138/75 09/08/2023 4:16 PM EST Pulse 94 09/08/2023 4:16 PM EST Temperature - - Respiratory Rate - - Oxygen Saturation - - Inhaled Oxygen Concentration - - Weight 70.3 kg (155 lb) 01/30/2025 4:12 PM EDT Height 149.9 cm (4' 11 ) 01/30/2025 4:12 PM EDT Body Mass Index 31.31 01/30/2025 4:12 PM EDT Plan of Treatment Health Maintenance Due Date Last Done Comments Colorectal Cancer Screening: Colonoscopy 1950 RSV Immunization Adult Patients (1 - Risk 50-74 years 1-dose series) 2001 Zoster Vaccines (1 of 2) 01/16/2011 11/21/2010, 08/06 Hepatitis B Vaccines (3 of 3 - 19+ 3-dose series) 05/24/2011 01/23/2011, 11/21/2010 Pneumococcal Vaccine: 50+ Years (2 of 2 - PCV) 02/24/2014 02/24/2013 DTaP,Tdap,and Td Vaccines (3 - Td or Tdap) 08/19/2020 08/19/2010, 07/18/2010 Cholesterol Screening (Lipid Panel) 08/15/2022 01/02/2015 Falls Risk Assessment 08/15/2022 Hepatitis C Screening 08/15/2022 Osteoporosis Screening (Bone Density Screening) 08/15/2022 Social Influencers of Health Screening 08/15/2022 Medicare Annual Wellness Visit 04/07/2024 04/07/2023 Depression Screening 09/06/2024 COVID-19 Vaccine ( season) 2025 08/20/2022, 06/10/2021, 12/12/2020, Additional history exists Influenza Vaccine (#1) 2025 08/13/2011 Breast Cancer Screening 01/30/2027 01/31/20 25, 10/06/2023, 10/05/2022, Additional history exists MMR Vaccines Aged Out 08/19/2010, 07/18/2010 No lo nger eligible based on patient's age to complete this topic Varicella Vaccines Aged Out 11/21/2010, 08/19/2010 No longer eligible based on patient's age to complete this topic HIB Vaccines Aged Out No longer eligi ble based on patient's age to complete this topic HPV Vaccines Aged Out No longer eligi ble based on patient's age to complete this topic Hepatitis A Vaccines Aged Out No long er eligible based on patient's age to complete this topic IPV Vaccines Aged Out No longer eligi ble based on patient's age to complete this topic Meningococcal ACWY Vaccine Aged Out N o longer eligible based on patient's age to complete this topic Meningococcal B Vaccine Aged Out No l onger eligible based on patient's age to complete this topic RSV Immunization Patients Under 20 months Aged Out No longer eligible based on patient's age to complete this topic Procedures Procedure Name Priority Date/Time Associated Diagnosis Comments MG MAMMO DIGITAL SCREENING W EVELIO BILAT Routine 01/30/2025 4:15 PM EDT Encounter for screening mammogram for breast cancer from Last 3 Months or Most Recently Relevant to Health Maintenance Results * MG Mammo Digital Screening w Evelio bilat (01/30/2025 4:15 PM EDT) Anatomical Region Laterality Modality Breast Bilateral Mammography 01/31/2025 11:3 0 AM EDT Impressions 01/31/2025 11:37 AM EDT No mammographic evidence of malignancy. No suspicious interval change. A negative mammogram in the presence of a clinically suspicious palpable abnormality does not preclude the possibility of malignancy or alter the indications for biopsy. ASSESSMENT: BI-RADS 1: NEGATIVE RECOMMENDATION(S): 1: Routine screening mammogram BILATERAL in 1 year. [facility] [address], [address] -------- FINAL REPORT -------- Dictated By: Toño Vasquez Dictated Date: 01/31/2025 11:30 ET Assigned Physician: Toño Vasquez Reviewed and Electronically Signed By: Toño Vasquez Signed Date: 01/31/2025 11:37 ET Workstation ID: [id number] Transcribed By: Self Edit Transcribed Date: 01/31/2025 11:30 ET Narrative 01/31/2025 11:37 AM EDT EXAM: SCREENING MAMMOGRAPHY, BILATERAL HISTORY: SCREENING. No additional history. COMPARISON: 10/05/23, 09/27/20, 09/30/21, 10/03/22 TECHNIQUE: Synthesized CC and MLO projections of each breast. Tomosynthesis of each breast in the CC and MLO projections. ADDITIONAL IMAGING: None Computer-aided detection was employed with the Shoto AI 3-D. TISSUE DENSITY: There are scattered areas of fibroglandular density. (BI-RADS category B) FINDINGS: RIGHT BREAST: No suspicious mass. No suspicious calcification. No distortion. No additional suspicious right breast findings LEFT BREAST: No suspicious mass. No suspicious calcification. No distortion. No additional suspicious left breast findings Procedure Note Toño Vasquez MD - 01/31/2025 EXAM: SCREENING MAMMOGRAPHY, BILATERAL HISTORY: SCREENING. No additional history. COMPARISON: 10/05/23, 09/27/20, 09/30/21, 10/03/22 TECHNIQUE: Synthesized CC and MLO projections of each breast.Tomosynthesis of each breast in the CC and MLO projections. ADDITIONAL IMAGING: None Computer-aided detection was employed with the Shoto AI 3-D. TISSUE DENSITY: There are scattered areas of fibroglandular density.(BI-RADS category B) FINDINGS: RIGHT BREAST: No suspicious mass. No suspicious calcification. No distortion. Noadditional suspicious right breast findings LEFT BREAST: No suspicious mass. No suspicious calcification. No distortion. Noadditional suspicious left breast findings IMPRESSION: No mammographic evidence of malignancy. No suspicious interval change. A negative mammogram in the presence of a clinically suspicious palpableabnormality does not preclude the possibility of malignancy or alter theindications for biopsy. ASSESSMENT: BI-RADS 1: NEGATIVE RECOMMENDATION(S): 1: Routine screening mammogram BILATERAL in 1 year. [facility]amm[facility] location[facility] [address], [id number] -------- FINAL REPORT -------- Dictated By: Toño Vasquez Dictated Date: 01/31/2025 11:30 ET Assigned Physician: Toño Vasquez Reviewed and Electronically Signed By: Toño Vasquez Signed Date: 01/31/2025 11:37 ET Workstation ID: [id number] Transcribed By: Self Edit Transcribed Date: 01/31/2025 11:30 ET us Self Referral Sppl IMG BI PROCEDURES Final Resul t from Last 3 Months or Most Recently Relevant to Health Maintenance Insurance [place]ID [place] Care Teams Electronics Technician Relationship Specialty Start Date End Date Gayla Lawrence MD [address] [place] [id number] PCP - General Internal Medicine 05/02/21
--- OUTSIDE RECORDS SUMMARY | 2025-06-20 19:08 | XMS_ITS | Clinical Summary ---
Author Organization [facility] Address [address] [place] [address] Care Team Providers Care Hand Cigar Maker Name Role Phone Johanna Crain PA-C Primary Care Provider [phone] Source Comments PLEASE NOTE, if this patient is a minor, it may be UNLAWFUL to discuss sensitive information that is contained in these records (such as FAMILY PLANNING, MENTAL HEALTH or SUBSTANCE ABUSE) with the minor patient's parent or other person without the patient's specific authorization.[facility] Allergies Active Allergy Reactions Criticality Noted Date Comments Eggs Rash 08/03/2012 Influenza Virus Vaccines Rash 08/03/2012 Medications fluticasone (FLOVENT HFA) 220 mcg/actuation inhalerIndications :ASTHMA MODERATE PERSISTENT Inhale 2 Puffs into the lungs 2 (two) times daily. 1 Inhaler 08/25/20 13 Active albuterol sulfate hfa (PROVENTIL,VENTOLI N,PROAIR) 90 mcg/actuation inhalerIndications :ASTHMA MODERATE PERSISTENT Inhale 2 Puffs into the lungs every 4 (four) hours as needed. 1 Inhaler 08/25/20 13 Active blood pressure monitorIndications :Goiter, toxic, multinodular DX: TOXIC MULTI-NODULAR GOITOR. 1 Kit 0 12/15/19 14 Active buPROPion (WELLBUTRIN SR) 100 mg 12 hr tabletIndications: Anxiety and depression Take 1 Tab by mouth every morning. PER PSYCH. 10/30/19 15 Active traZODone (DESYREL) 50 mg tabletIndications: Insomnia Take 1 Tab by mouth nightly at bedtime. PER PSYCH. 10/30/19 15 Active montelukast (SINGULAIR) 10 mg tabletIndications: Moderate persistent asthma Take 1 Tab by mouth nightly at bedtime. 10/30/19 15 Active zolpidem (AMBIEN) 10 mg tabletIndications: Insomnia Take 1 Tab by mouth nightly at bedtime as needed for sleep. PER PSYCH. 10/30/19 15 Active levothyroxine (SYNTHROID, LEVOTHROID) 88 mcg tabletIndications: Postsurgical hypothyroidism Take 1 Tab by mouth once daily. 07/04/20 15 Active walkerIndications: Moderate persistent asthma without complication,Knee pain, bilateral,Bilatera l low back pain with sciatica, sciatica laterality unspecified Walker with seat and breaks. Dx: asthma, knee and back pain. 1 Each 0 07/23/20 15 Active ammonium lactate (AMLACTIN,LAC-HYDR IN) 12 % creamIndications:X erosis of skin Apply topically 2 (two) times daily as needed for dry skin. 385 g 2 10/15/19 16 Active magnesium oxide (MAG-OX) 400 mg tabletIndications: Other type of migraine Take 1 Tab by mouth once daily. Take with food. PER NEURO. 12/31/19 16 Active hydrOXYzine (VISTARIL) 25 mg capsule TAKE ONE CAPSULE BY MOUTH 3 TIMES A DAY 30 DAYS 3 02/26/20 16 Active eucerin creamIndications:X erosis of skin,Allergic dermatitis Apply topically as needed for dry skin or itching. 454 g 1 05/13/20 16 Active clotrimazole-betam ethasone (LOTRISONE) 1-0.05 % creamIndications:T inea corporis Apply topically 2 (two) times daily. 45 g 1 05/28/20 16 Active omeprazole (PRILOSEC) [address] capsuleIndications :Gastroesophageal reflux disease, esophagitis presence not specified Take 1 Cap by mouth every morning before breakfast. Do not crush or chew. 30 Cap 11 07/13/20 16 Active estradiol (ESTRACE) 0.01 % (0.1 mg/gram) vaginal creamIndications:A trophic vaginitis 1 g PV nightly at bedtime x 7 days then use twice weekly. 42.5 g 0 09/28/19 17 Active caneIndications:Ch ronic pain of both knees Dx: bilateral knee pain 1 Each 0 09/28/19 17 Active cetirizine (ZYRTEC) 10 mg tabletIndications: Allergic rhinitis, unspecified allergic rhinitis trigger, unspecified rhinitis seasonality Take 1 Tab by mouth once daily 11/28/19 17 Active cromolyn (OPTICROM) 4 % ophthalmic solutionIndication s:Allergic conjunctivitis, bilateral Place 1 Drop into both eyes 4 (four) times daily 10 mL 11/28/19 17 Active albuterol (PROVENTIL) 2.5 mg /3 mL (0.083 %) nebulizer solutionIndication s:Moderate persistent asthma without complication Take 3 mL by nebulization every 6 (six) hours as needed for wheezing 30 Vial 5 11/28/19 17 Active nebulizerIndicatio ns:Moderate persistent asthma without complication Dx: persistent asthma 1 Each 0 11/28/19 17 Active SENNA PLUS 8.6-50 mg per tablet TAKE 2 TABS BY MOUTH NIGHTLY AT BEDTIME NEEDED FOR CONSTIPATION 60 Tab 2 02/24/20 17 Active gabapentin (NEURONTIN) 600 mg tabletIndications: Chronic pain of both knees,Chronic bilateral low back pain with right-sided sciatica Take 1 Tab by mouth 3 (three) times daily 90 Tab 5 03/04/20 17 Active celecoxib (CELEBREX) 200 mg capsuleIndications :Chronic pain of both knees,Chronic bilateral low back pain with right-sided sciatica Take 1 Cap by mouth 2 (two) times daily with a meal 60 Cap 3 03/04/20 17 Active diclofenac (VOLTAREN) 1 % gelIndications:Chr onic pain of both knees Apply topically 2 (two) times daily Apply to most painful area. 100 g 2 03/04/20 17 Active HYDROcodone-acetam inophen (NORCO) 5-325 mg per tabletIndications: Chronic pain of both knees,Chronic bilateral low back pain with right-sided sciatica Take 0.5 Tabs by mouth every 6 (six) hours as needed for pain 03/04/20 17 Active lidocaine (LMX) 4 % creamIndications:E xternal hemorrhoids Apply topically as needed for pain 15 g 1 03/22/20 17 Active alendronate (FOSAMAX) 70 mg tabletIndications: Osteoporosis of lumbar spine Take 1 Tab by mouth every 7 (seven) days Stop fosamax 35 mg. 12 Tab 3 03/30/20 17 Active VITAMIN D-3 2,000 unit capsuleIndications :Vitamin D deficiency TAKE 1 CAPSULE BY MOUTH ONCE DAILY. 30 Cap 11 04/19/20 17 Active hydrocortisone-pra moxine (ANALPRAM-HC) 2.5-1 % rectal creamIndications:H emorrhoids, unspecified hemorrhoid type Place rectally 2 (two) times daily 30 g 1 05/03/20 17 Active Active Problems Problem Noted Date Diagnosed Date Postmenopausal atrophic vaginitis 11/27/2016 Allergic rhinitis 10/31/2016 Overview (10/31/2016): Seen by campus supervisor Dr. Zhang 10/20/16 = positive skin test reactions ragweed pollen, tree pollen, grass pollen, cattle, feathers, dust mites, horse dander, rabbit dander, guinea pig and cockroach. Negative food testing, but states she does get itching if eats egg yolk. Constipation due to opioid therapy 12/31/2015 Cataracts, bilateral 10/04/2015 Overview (10/04/2015): [facility], plans to have surgery left 06/08/16 and right 07/13/16 Postsurgical hypothyroidism 07/04/2015 Overview (10/04/2015): S/p total thyroidectomy 04/08/[address] Colon. F/u [facility] Endo. Tinea corporis/intertrigo (right breast and groi n) 07/04/2015 Neck pain, bilateral 02/12/2015 Overview (02/12/2015): MRI cervical spine 02/08/[address] [facility] = mild degenerative changes in cervical spine, disc degeneration C2-T1 Vitamin D deficiency 01/02/2015 Insomnia 12/14/2013 Overview (12/14/2013): PSYCH F/U DR. ROBERTO Knee pain, bilateral 12/14/2013 Overview (12/31/2015): F/u [facility] Dr. Duarte External hemorrhoids 08/25/2013 Overview (08/25/2013): F/U GI Functional constipation 11/26/2011 GERD (gastroesophageal reflux disease) 2 Low back pain 02/26/2011 Overview (08/25/2013): X-rays 02/26/11 revealed 6 mm spondylolisthesis L5 on S1/bilateral L5 pars defects. Anxiety and depression 01/23/2011 Overview (08/25/2013): PSYCH F/U DR. ROBERTO. Moderate persistent asthma 10/24/2010 Overview (07/04/2015): Pulm f/u Dr. Magaña Osteoporosis of lumbar spine 10/24/2010 Overview (03/30/2017): Bone Density: 02/17/17 osteoporosis l- spine, 09/01/10 osteopenia L-spine Migraines 10/24/2010 Overview (12/26/2014): F/u [facility] Neuro. Goiter, toxic, multinodular s/p total thyroidectomy 04/08/2015 10/24/2010 Overview (10/04/2015): F/U [facility] ENDOCRINOLOGY with Dr. Andujar. Resolved Problems Problem Noted Date Diagnosed Date Resolved Date Subclinical hyperthyroidism 10/24/2010 04/08/2015 Overview (08/25/2013): F/U ENDO. Immunizations Immunization Administration Dates Next Due Hep B, Adult/Adol (SUFRSOL-B-EEKYE/RECOMBIVAX-AD ULT) 01/23/2011,11/21/2010 INFLUENZA, SEASONAL, INJECTABLE 08/13/2011 MMR (MMR II/Priorix) 08/19/2010,07/18/2010 PNEUMOCOCCAL POLYSACCHARIDE PPV23 (Pneumovax 23) 02/24/2013 TDAP 07/18/2010 Td (adult),2 Lf tetanus toxo id (TDVAX), preservative free 08/19/2010 Varicella (Varivax), Live Vaccine 11/21/2010, Social History Tobacco Use Types Packs/Day Years Used Date Smoking Tobacco: Never Smokeless Tobacco: Never Alcohol Use Standard Drinks/Week Comments No 0 (1 standard drink = 0.6 oz pur e alcohol) Social Connections Answer Date Recorded Connectedness 0 05/23/2024 Financial Resource Strain Answer Date R ecorded Financial Resource Strain 0 2018 Stress Answer Date Recorded Stress 0 04/29/2019 Physical Activity Answer Date Recorded Physical Activity 0 04/29/2019 Food Insecurity Answer Date Recorded Food 0 06/01/2024 Transportation Needs Answer Date Record ed Transportation 0 04/29/2019 Housing Stability Answer Date Recorded Housing 0 04/29/2019 Safety and Environment Answer Date Lucho rded Safety 0 04/29/2019 Utilities Answer Date Recorded Utilities 0 04/29/2019 Employment Answer Date Recorded Stress 0 05/23/2024 Comments No Sex and Gender Information Value Date Recorded Sex Assigned at Female 02/10/2017 7:16 AM PDT Legal Sex Female 11:36 AM PDT Gender Identity Female 02/10/2017 7:16 AM PDT Sexual Orientation Straight 02/10/2017 7: 16 AM PDT Last Filed Vital Signs Vital Sign Reading Time Taken Comments Blood Pressure 132/79 05/04/2024 4:09 PM EDT Pulse 91 05/04/2024 4:09 PM EDT Temperature 36.7 C (98.1 F) 05/03/2017 9:16 AM EDT Respiratory Rate 17 05/03/2017 9:16 AM EDT Oxygen Saturation - - Inhaled Oxygen Concentration - - Weight 75.4 kg (166 lb 3.2 oz) 03/22/2017 9:37 A M EDT Height 147.3 cm (4' 10 ) 03/04/2017 3:17 PM EDT Body Mass Index 34.74 03/04/2017 3:17 PM EDT Plan of Treatment Health Maintenance Due Date Last Done Comments Dental Perio Charting 1950 Hepatitis C Screening 1950 Tobacco Screening 1950 Medicare Annual Wellness Visit 1969 CT Colonography 1996 FIT/gFOBT 1996 Fecal DNA 1996 Flexible Sigmoidoscopy 1996 Imm-Zoster, Recombinant (1 of 2) 01/16/2011 Imm-Hepatitis B (3 of 3 - 19 + 3-dose series) 05/24/2011 01/23/2011, 11/21/2010 Imm-Pneumococcal 50+ (2 of 2 - PCV) 02/24/201402/24 TSH Monitoring 01/03/2016 01/02/2015 Falls Prevention 2016 Depression Monitoring 06/04/2016 03/04/2016 Breast Cancer Screening (Mammogram) 09/10/2018 09/10/2016, 09/02/2015, 08/27/2014 Lipid Screening 01/03/2020 01/02/2015 Imm-DTaP/Tdap/Td (3 - Td or Tdap) 08/19/2020 010, 07/18/2010 Colonoscopy 07/04/2023 07/04/2013 Colorectal Cancer Screening 07/04/2023 Alcohol and Drug Screen 09/06/2024 03/04/2016, 10/04 Dental Prophy 03/16/2025 03/14/2024 Hypertension Screening (#1) 05/04/2025 [id number] ( season) 2025 Imm-Influenza (#1) 2025 08/13/2011 Bone Density Screening Completed 02/17/2017 Procedures Procedure Name Priority Date/Time Associated Diagnosis Comments PROPHYLAXIS - ADULT Routine 03/14/2024 4 :20 PM EDT Asymptomatic periapical periodontitis ASSAY OF THYROID STIMULATING HORMONE TSH Routine 01/02/2015 9:01 AM EDT Routine general medical examination at a health care facility LIPID PANEL Routine 01/02/2015 9:01 AM EDT Routine general medical examination at a health care facility from Last 3 Months or Most Recently Relevant to Health Maintenance Results * THYROID STIMULATING HORMONE (TSH) (01/02/2015 9:01 AM EDT) TSH 0.44 0.40 - 4.00 uIU/ml [facility] Blood specimen (specimen) Blood / Unknown 01/02/2015 9:01 AM EDT 01/02/2015 9:03 AM EDT [facility]ative [facility] - 01/02/2015 12:24 PM EDT [facility] [address] [place] [id number] [place] ID [id number] ORD# [id number] [facility] - BLOOD DRAW Final Res ult [facility] [address] [place] [address], [place] [phone] * LIPID PANEL (01/02/2015 9:01 AM EDT) CHOLESTEROL 178 0 - 200 mg/dL [facility] TRIGLYCERIDES 123 0 - 150 mg/dL [facility] HDL CHOLESTEROL 59 >40 mg/dL [facility] LDL CALCULATED 95 0 - 100 mg/dL [facility] TC-HDLC RATIO 3.0 0 - 4.4 mg/dL [facility] Blood specimen (specimen) Blood / Unknown 01/02/2015 9:01 AM EDT 01/02/2015 9:03 AM EDT Narrative [facility] - 01/02/2015 12:15 PM EDT [facility] Attender [address] [place] [address] PT ID [id number] ORD# [id number] [facility] - BLOOD DRAW Final Res ult Performing Organization Address City/[facility]/ZIP Co de Phone Number [facility] [address] [place] [address], [place] [phone] from Last 3 Months or Most Recently Relevant to Health Maintenance [place] [facility] [facility] NET DENTAL MEDICAID Member Subscriber Plan / Payer (Ef fective 2013-Present) Name:Stu Faith Relation to Subscriber:Self Name:Stu Faith Payer ID:[id number] Group ID:Not on file Type:Medicaid Address: [address] MEDICAID MEDICARE - [place] Care Teams Hand Cigar Maker Relationship Specialty Start Date End Date Johanna Crain PA-C [address] [place] [address] PCP - General 11/01/18
== END 2025-06-20 16:17 | disposition home or self-care (01) ==
LOC: HO.HSM 15:52
PROVIDERS: PCP Hospitalist; Referring Provider Hospitalist; Visit Provider Psychiatry & Neurology Neurology
DX: G31.84 Mild cognitive impairment of uncertain or unknown etiology (principal); G47.00 Insomnia, unspecified; G47.33 Obstructive sleep apnea (adult) (pediatric)
CPT/HCPCS: 99214

== ENCOUNTER → 2025-06-20 15:51 | Outpatient (BNVA) | payer MEDICARE, MEDICAID, SELFPAY | PROVIDERS: PCP Hospitalist; Referring Provider Hospitalist; Visit Provider Psychiatry & Neurology Neurology | DX: G47.33 Obstructive sleep apnea (adult) (pediatric) (principal); G47.34 Idiopathic sleep related nonobstructive alveolar hypoventilation; G31.84 Mild cognitive impairment of uncertain or unknown etiology | CPT/HCPCS: 99212 ==

== ENCOUNTER 2025-08-20 09:54 | Outpatient (AMB) | payer MEDICARE, MEDICAID, SELFPAY ==
--- NOTE | 2025-08-20 09:58 | MHC.OFFVIS ---
Vital Signs 08/20/25 10:10 Height 4 ft 11 in Weight 160 lb BMI 32.3 BP 116/76 Blood Pressure Location Rt brachial Position Sitting Respiration 16 Pulse 103 H Pulse Source Pulse Oximeter Pulse Oximetry (%) 97 Oxygen Delivery Method Room Air Intake Visit Reasons: Follow Up Transcribing Operator Head Required: Yes Transcribing Operator Head Services: Transcribing Operator Head Offered & Declined Transcribing Operator Head Name: pts son will translate Information Interpreted: non-clinical & clinical Accompanied by: Son Allergies Flu Vaccine Allergy (Unknown, Uncoded 08/14/25 09:11) Unknown HPI Comments Details: This is a 75-year-old female patient with a past medical history of memory impairment who has been followed by Dr. Cid. It appears that she was last seen on 06/20/2025. At that time she was maintained on donepezil 10 mg daily an overall she was having some short-term memory difficulties over the course of the last 1-1/2 years often making up stories with some subtle personality changes noted as well. Family had also noticed some difficulty with urinary control and at that time there were no history of family stroke or personal history of trauma. She comes in today with her son reporting that on 07/14/2025 while in [place] visiting family, she was sitting at a table and fell backwards into her chair. For 5 minutes she was unable to speak and was somewhat unresponsive though not unconscious. She went to a hospital in [facility] where she had a CAT scan that was positive for a CVA. Her son brings the report to me today showing a left-sided parietal hypodensity. Her speech was affected and her son feels that her speech continues to be affected though otherwise she is back to her baseline. He tells me that she feels her speech is slightly garbled and she has more difficulty than prior with word-finding and expression. She has not had any further falls or any new arising neurological concerns. She was recently started on amlodipine and Plavix by primary care. He tells me that primary care also did order an MRI of the brain though he is not sure where this was ordered. Labs were also recently obtained through [facility]. Review of Systems Const All systems reviewed & are unremarkable except as noted in HPI and below Physical Exam Vital Signs: Last Vital Signs Pulse 103 H 08/20/25 10:10 Resp 16 08/20/25 10:10 BP 116/76 08/20/25 10:10 Pulse Ox 97 08/20/25 10:10 Oxygen Delivery Method Room Air 08/20/25 10:10 BMI result Body Mass Index 32.3 Const General: cooperative, healthy appearing, comfortable and no acute distress Nutritional Appearance: well nourished Eyes General: appearance normal, both eyes and all related structures Visual Hollins: normal visual hollins by confrontation Alignment and Position: alignment normal Periorbital: periorbital findings normal Eyelids: Yes eyelids normal Conjunctivae: conjunctivae normal Sclerae: sclerae normal Neuro General: tone normal and deep tendon reflexes 2+ bilaterally Cranial nerves: Yes CN's II-XII intact bilaterally and Yes Facial sensation intact/muscles of mastication intact Motor exam (neuro): 5/5 motor strength present throughout and no tremor noted Sensory Exam: double simultaneous stimulation for sensation normal Romberg Test: Negative Pupils: Normal pupillary reactivity/response: bilateral Assessment & Plan Assessment & Plan (1) MCI (mild cognitive impairment): Comment: 04/16/22 EEG- WNL CT brain normal. Labs normal. Code(s): G31.84 - Mild cognitive impairment of uncertain or unknown etiology Category: Medical (2) CVA (cerebral vascular accident): Code(s): I63.9 - Cerebral infarction, unspecified Category: Medical Plan This is a 75-year-old female patient with a past medical history of memory impairment who has been followed by Dr. Cid. She had recent CVA while in [place]. Primary care started her on amlodipine and Plavix and ordered labs as well as an MRI. She did have her labs completed which I will obtain and the son is not aware of where the MRI order was sent. I will order it again here for [facility] so we can access the imaging for follow up. -continue donepezil 10 mg daily -continue amlodipine with primary care for blood pressure management -continue clopidogrel 75 mg daily as prescribed by primary care -follow up after MRI with Dr. Cid Orders: Orders MR head/brain wo con Today G31.84 - Mild cognitive impairment of uncertain or unknown etiology, I63.9 - Cerebral infarction, unspecified Coding Level of Care Code Est Pt Level 4 (34437) Diagnoses MCI (mild cognitive impairment) G31.84 CVA (cerebral vascular accident) I63.9
[2025-08-20 10:10] VITALS: BP 116/76; PULSE 103; RESP 16; O2SAT 97; BMI 32.3
== END 2025-08-20 10:50 | disposition home or self-care (01) ==
LOC: HO.HSM 09:55
PROVIDERS: PCP Hospitalist; Visit Provider Nurse Practitioner
DX: G31.84 Mild cognitive impairment of uncertain or unknown etiology (principal); I63.9 Cerebral infarction, unspecified
CPT/HCPCS: 99214

== ENCOUNTER → 2025-08-20 09:54 | Outpatient (BNVA) | payer MEDICARE, MEDICAID, SELFPAY | PROVIDERS: PCP Hospitalist; Visit Provider Nurse Practitioner | DX: G31.84 Mild cognitive impairment of uncertain or unknown etiology (principal) | CPT/HCPCS: 99212 ==